=== PATIENT | male | born 1960 | race Caucasian/White ===

== ENCOUNTER 2022-05-25 09:13 | Outpatient (REF) | payer OTHER, SELFPAY ==
--- NOTE | ~2022-05-25 | XR_ITS ---
EXAMINATION: XR CERVICAL SPINE CLINICAL INFORMATION: Cervicalgia COMPARISON: None TECHNIQUE: 6 views of the cervical spine, inclusive of flexion and extension views, were obtained. FINDINGS: The dens is intact. The lateral masses are normally positioned. Lung apices are clear. There is mid cervical facet arthropathy with loss of disc height, endplate sclerosis, and anterior osteophytosis greatest at C6-C7, seen to a lesser degree at C5-C6. There is right osseous neuroforaminal narrowing at C3-C4 and C4-C5. Possible mild left osseous neuroforaminal narrowing at C4-C5. There is mild reversal of the normal cervical lordosis with 3 mm retrolisthesis of C6 on C7. There is no change with flexion or extension. XR/XR cervical spine w flex/ext IMPRESSION: Mid cervical facet arthropathy, degenerative disc disease at C5-C6 and C6-C7, and osseous neuroforaminal narrowing as described above. 3 mm retrolisthesis of C6 on C7 is unchanged in flexion.
[2022-05-25 11:11] LABS: Erythrocyte Sedimentation Rate 6 MM/HR (0-15)
== END 2022-05-25 09:14 | disposition home or self-care (01) ==
LOC: HO.LAB 09:13
PROVIDERS: PCP Internal Medicine; Visit Provider Nurse Practitioner Family
DX: R51.9 Headache, unspecified (principal); M54.2 Cervicalgia
CPT/HCPCS: 36415; 72052; 85652

== ENCOUNTER → 2022-09-12 12:56 | Outpatient (REF) | payer OTHER, SELFPAY | LOC: HO.SL 12:56 | PROVIDERS: PCP Internal Medicine; Visit Provider Nurse Practitioner Family | DX: G47.19 Other hypersomnia (principal); R06.83 Snoring; R35.1 Nocturia | CPT/HCPCS: 95806 ==

== ENCOUNTER 2022-10-23 14:05 | Outpatient (REF) | payer OTHER, SELFPAY ==
--- NOTE | 2022-10-23 | EMG_ITS ---
Please see scanned EMG / Nerve Conduction Report. MTDD
== END 2022-10-23 14:06 | disposition home or self-care (01) ==
LOC: HO.NEURO 14:05
PROVIDERS: Visit Provider Nurse Practitioner Family
DX: R25.1 Tremor, unspecified (principal); M54.2 Cervicalgia
CPT/HCPCS: 95886; 95910

== ENCOUNTER → 2023-01-16 14:26 | Outpatient (BNVA) | payer OTHER, SELFPAY | PROVIDERS: PCP Internal Medicine; Visit Provider Nurse Practitioner Family | DX: F45.8 Other somatoform disorders (principal); R06.83 Snoring; M54.2 Cervicalgia; R25.1 Tremor, unspecified ==

== ENCOUNTER → 2023-04-17 10:32 | Outpatient (BNVA) | payer OTHER, SELFPAY | PROVIDERS: PCP Internal Medicine; Visit Provider Nurse Practitioner Family | DX: F45.8 Other somatoform disorders (principal); R35.1 Nocturia; R06.83 Snoring; M54.2 Cervicalgia; R25.1 Tremor, unspecified ==

== ENCOUNTER 2023-11-06 10:38 | Outpatient (AMB) | payer OTHER, SELFPAY ==
--- NOTE | 2023-11-06 10:50 | MHC.OFFVIS ---
Intake Vital Signs 11/06/23 10:51 Height 5 ft Weight 165 lb 6 oz BMI 32.3 BP 118/82 Blood Pressure Location Rt brachial Position Sitting Intake Visit Reasons: 6mo f/u Head pressure,headaches-Conf Intake Note: patient presents for 6 month follow up head pressure,headaches. Allergies acetaminophen [From Vicodin] Adverse Reaction (Mild, Verified 11/06/23 10:57) Migraine hydrocodone [From Vicodin] Adverse Reaction (Mild, Verified 11/06/23 10:57) Migraine Medication List - Last Reconciled 11/06/23 by Jennifer Montano, BESSIE ibuprofen 200 mg PO Q6H PRN lorazepam 1 - 2 mg PO BEDTIME PRN HPI HPI Comments History of Present Illness Details 63-yr-old male presents for f/u visit. Pt denies any significant interval medical changes. He reports that he does have a daily headache, but somed ays are worse than others. He is not having the burning pain. The headache is now more like a pressure, mostly in the left spiritism, but also pressure/fullness in the forhead and eyes (supratrochlear and supraorbital), and can move into bilateral L > R cheek or chin nerve sensitivity but can wash it away w/ light touch. The headache can be triggered by wearing a tighter cap, laying or sitting with head back. He is not having as much neck pain in the last 2 months- now doing more cervical ROM and swimming at the [employer] and [employer]. He has annual f/u w/ Dr Cortez coming up. Doing sit-ups and walking on treadmill (flat at approx 3.6mph) can trigger the headache. However the swimming and bicep curls do not trigger the head pressure. Sometimes talking can trigger a headache. Still has bilateral L > R annoying ringing tinnitus. Now using Lorazepam 0.5mg most nights. Not using the cyclobenzaprine anymore. He has retired. No vision changes, no pain on chewing. [facility] Medical History Nocturia Surgical History H/O neck surgery History of hernia surgery History of back surgery Family History Father Arthritis Mother Type 2 diabetes mellitus Social History Alcohol intake: current Alcohol intake frequency: 0-2 drinks per day Patient Tobacco Use Status: Never used Tobacco Review of Systems Const All systems reviewed & are unremarkable except as noted in HPI and below Physical Exam Vital Signs: Last Vital Signs BP 118/82 11/06/23 10:51 BMI result Body Mass Index 32.3 Const General: cooperative and no acute distress Orientation/consciousness: patient oriented x3 HEENT Head: Yes normocephalic Resp Effort & Inspection: normal respiratory effort and able to speak in complete sentences Neuro General: patient oriented x3, gait normal and CN's II-XI intact bilaterally Cognition (Neuro): normal cognition Motor exam (neuro): 5/5 motor strength present throughout Psych Appearance: grossly normal Mental Status: mental status grossly normal Speech and movement: Normal speech and movement present Affect: normal affect Attitude: cooperative Thought process: Normal thought process present Thought content: Normal thought content present Insight: Good insight present (Psych) Judgement: Good judgement present (Psych) Results Reviewed Results Reviewed: Brain MRI w/wo 12/27/21 at [facility]: IMPRESSION: 1. Normal appearance to the IACs, inner ear structures and CP angle cisterns, with a normal appearance to the cranial nerve VII and VIII complexes bilaterally. No mass lesions or abnormal enhancement. 2. Small nonenhancing focus of white matter T2 hyperintensity, which is slightly T1 hypointense in the deep right centrum semiovale white matter, which is a nonspecific finding. Minimal patchy nonenhancing T2 hyperintensity in the right parietal white matter which may reflect minimal chronic ischemic microangiopathy. Assessment & Plan Assessment & Plan (1) Facial paresthesia: Code(s): R20.2 - Paresthesia of skin (2) Headache: Comment: atypical headache Code(s): R51.9 - Headache, unspecified (3) Exertional headache: Code(s): G44.84 - Primary exertional headache Plan Previous barin MRI- NL Previous ESR- NL Pt continues to have atypical headache w/ facial paresthesias and external triggers- thus pt advised to undergo Brain MRA to assess for secondary vascular etiology. For now continue paced exercise. Continue Lorazepam o.5-1mg qhs prn. f/u upon review of above and in-clinic in 6 months or sooner prn. Orders: Orders MR angio head wo con Today G44.84 - Primary exertional headache, R20.2 - Paresthesia of skin, R51.9 - Headache, unspecified Coding Level of Care Code Est Pt Level 4 (52183) Diagnoses Facial paresthesia R20.2 Headache R51.9 Exertional headache G44.84
[2023-11-06 10:51] VITALS: BP 118/82; BMI 32.3
== END 2023-11-06 12:10 | disposition home or self-care (01) ==
PROVIDERS: Visit Provider Nurse Practitioner Family
DX: R20.2 Paresthesia of skin (principal); G44.84 Primary exertional headache
CPT/HCPCS: 99214

== ENCOUNTER → 2023-11-06 10:38 | Outpatient (BNVA) | payer OTHER, SELFPAY | PROVIDERS: Visit Provider Nurse Practitioner Family | DX: F45.8 Other somatoform disorders (principal); R35.1 Nocturia; R06.83 Snoring; M54.2 Cervicalgia; R25.1 Tremor, unspecified ==

== ENCOUNTER 2024-05-13 10:53 | Outpatient (AMB) | payer OTHER, SELFPAY ==
--- NOTE | 2024-05-13 11:02 | A.OFFVIS_ITS ---
Vital Signs 05/13/24 11:03 Height 5 ft Weight 160 lb BMI 31.2 BP 140/98 H Blood Pressure Location Rt brachial Position Sitting Pulse 77 Pulse Source Pulse Oximeter Pulse Oximetry (%) 98 Oxygen Delivery Method Room Air Intake Visit Reasons: 6 mnts f/u appt-LVM Intake Note: Patient presents for 6 follow month.. patient still has headaches not as much but still gets them, patient sleeping better. Allergies acetaminophen [From Vicodin] Adverse Reaction (Mild, Verified 05/13/24 11:07) Migraine hydrocodone [From Vicodin] Adverse Reaction (Mild, Verified 05/13/24 11:07) Migraine Medication List - Last Reconciled 05/13/24 by BESSIE Ferrara cyclobenzaprine 10 mg PO BEDTIME PRN 30 days ibuprofen 200 mg PO Q6H PRN HPI Comments Details: 64-yr-old male presents for f/u visit. Pt denies any significant interval medical changes. Brain MRA- normal. He states that his glasses are not as bothersome- they are do not feel that they are pressing as much as they used to. He is not feeling the bilateral head nerve sensation as much- it is much bottom turning lathe tender and less frequent. He does not that he will feel the headache when he sleeps on his back. He can still have some neck pain. He still has sky tinnitus- sounds like tiny bells, sometimes he does not notice it as much. Had f/u w/ Dr Odom- was told work-up was normal. He has retired. He is sleeping better since he retired. He notes that he when he does not sleep well, he feels more hyper- like he cannot settle done. He feels the muscle relaxer can help him to relax. He is exercising regularly. Strength training. Does warm-ups/stretches. Walks a lot. Has been hiking. He has added a weekly yoga class before he exercises. He is trying to do some mediation. [facility] Medical History Nocturia Surgical History H/O neck surgery History of hernia surgery History of back surgery Family History Father Arthritis Mother Type 2 diabetes mellitus Social History Alcohol intake: current Alcohol intake frequency: 0-2 drinks per day Patient Tobacco Use Status: Never used Tobacco Physical Exam Vital Signs: Last Vital Signs Pulse 77 05/13/24 11:03 BP 140/98 H 05/13/24 11:03 Pulse Ox 98 05/13/24 11:03 Oxygen Delivery Method Room Air 05/13/24 11:03 BMI result Body Mass Index 31.2 Const General: cooperative and no acute distress Orientation/consciousness: patient oriented x3 Resp Effort & Inspection: normal respiratory effort and able to speak in complete sentences Neuro General: patient oriented x3 Cranial nerves: Yes CN's II-XII intact bilaterally Cognition (Neuro): normal cognition Psych Appearance: grossly normal Mental Status: mental status grossly normal Speech and movement: Normal speech and movement present Affect: normal affect Attitude: cooperative Assessment & Plan Assessment & Plan (1) Headache: Comment: atypical headache Code(s): R51.9 - Headache, unspecified Category: Medical (2) Cervicalgia: Code(s): M54.2 - Cervicalgia Category: Medical Plan Reviewed Brain MRA- normal. Continue regular physical activity. May use Cyclobenzaprine 10mg qhs prn. Pt has stopped Lorazepam o.5-1mg qhs prn. f/u in 12 months or sooner prn. Medications: Refilled cyclobenzaprine 10 mg PO BEDTIME 30 days PRN 30 tabs 3RF muscle spasm Coding Level of Care Code Est Pt Level 4 (32935) Diagnoses Headache R51.9 Cervicalgia M54.2
[2024-05-13 11:03] VITALS: BP 140/98; PULSE 77; O2SAT 98; BMI 31.2
== END 2024-05-13 11:58 | disposition home or self-care (01) ==
PROVIDERS: PCP Internal Medicine; Visit Provider Nurse Practitioner Family
DX: R51.9 Headache, unspecified (principal); M54.2 Cervicalgia
CPT/HCPCS: 99214

== ENCOUNTER → 2024-05-13 10:53 | Outpatient (BNVA) | payer OTHER, SELFPAY | PROVIDERS: PCP Internal Medicine; Visit Provider Nurse Practitioner Family ==

== ENCOUNTER 2024-11-10 09:10 | Outpatient (AMB) | payer OTHER, SELFPAY ==
--- NOTE | 2024-11-10 09:19 | A.OFFVIS_ITS ---
Vital Signs 11/10/24 09:20 Height 5 ft Weight 167 lb 15.876 oz BMI 32.8 BP 132/80 Blood Pressure Location Lt brachial Position Sitting Pulse 73 Pulse Source Pulse Oximeter Pulse Oximetry (%) 98 Oxygen Delivery Method Room Air Intake Visit Reasons: RA. Needs Cortisone Injections/CM Intake Note: Patient presents for cortisone injection in left hip today. Allergies acetaminophen [From Vicodin] Adverse Reaction (Mild, Verified 05/13/24 11:07) Migraine hydrocodone [From Vicodin] Adverse Reaction (Mild, Verified 05/13/24 11:07) Migraine HPI HPI RA. Needs Cortisone Injections/CM: Details: Since being in [facility] he has had pain in his left lateral hip when he sleeps. He also has noted vibration on the lateral side of his hip that comes and goes radiates to his knee. When he was in [facility] he took cyclobenzaprine 5 mg q.h.s. with relief. [facility] Medical History Nocturia Surgical History H/O neck surgery History of hernia surgery History of back surgery Family History Father Arthritis Mother Type 2 diabetes mellitus Social History Alcohol intake: current Alcohol intake frequency: 0-2 drinks per day Patient Tobacco Use Status: Never used Tobacco Review of Systems Const All systems reviewed & are unremarkable except as noted in HPI and below Physical Exam Vital Signs: Last Vital Signs Pulse 73 11/10/24 09:20 BP 132/80 11/10/24 09:20 Pulse Ox 98 11/10/24 09:20 Oxygen Delivery Method Room Air 11/10/24 09:20 BMI result Body Mass Index 32.8 Const Other: General: Comfortable Skin: No lesions seen MSK: Tender to palpate left trochanteric bursa. Good range of motion of hip. No tenderness along ITP band. Office Procedures AMB Joint Injection/Aspiration Joint Injection/Aspiration Details: Left trochanteric hip bursa Prep: site was prepped using aseptic technique Injected: 40 mg of, Kenalog, with 1 mL of and 1% plain lidocaine Procedure: The patient tolerated the procedure well Coding - Large joint Procedure code (CPT) selection complete Office Meds Kenalog 40 mg/mL suspension for injection Performing Provider: Rangel Sena MD Performing Location[place] [facility] [place] [facility] Administered by: Rangel Sena MD on 11/10/24 09:53 Dose Route Admin Location Dispensed Lot Number Expiration Date [facility] [employer] 40 mg intrabursal 1 mL AP [id number] [employer] lidocaine (PF) 10 mg/mL (1 %) injection solution Performing Provider: Rangel Sena MD Performing Location[place] [facility] [place] [facility] Administered by: Rangel Sena MD on 11/10/24 09:53 Dose Route Admin Location Dispensed Lot Number Expiration Date [facility] [employer] 10 mg Infiltration 2 mL [id number] [facility] Assessment & Plan Assessment & Plan (1) Trochanteric bursitis, left hip: Comment: Recurrent. Code(s): M70.62 - Trochanteric bursitis, left hip Category: Medical Plan: He received left trochanteric bursa cortisone injection this visit Return to clinic p.r.n. (2) Muscle spasm: Comment: Suspected in left leg. He had relief with cyclobenzaprine PRN. Code(s): M62.838 - Other muscle spasm Category: Medical Plan: He will call office with prescription. We will then send 30 day supply of cyclobenzaprine for him to use sparingly. Return to clinic p.r.n. Orders: Orders AMB Joint Injection/Aspiration Today M70.62 - Trochanteric bursitis, left hip Medications: New Kenalog (triamcinolone acetonide) 40 mg intrabursal ONCE 1 mL 0RF NS M70.62 - Trochanteric bursitis, left hip lidocaine (PF) 10 mg Infiltration ONCE 1 mL 0RF M70.62 - Trochanteric bursitis, left hip Coding Level of Care Code Est Pt Level 3 (93650) Complex EM visit Add On G2211 Diagnoses Trochanteric bursitis, left hip M70.62 Muscle spasm M62.838 CPT Codes Coding - Large joint: 01628 - Large joint ([id number])
[2024-11-10 09:20] VITALS: BP 132/80; PULSE 73; O2SAT 98; BMI 32.8
== END 2024-11-10 09:51 | disposition home or self-care (01) ==
PROVIDERS: PCP Internal Medicine; Visit Provider Internal Medicine Rheumatology
DX: M70.62 Trochanteric bursitis, left hip (principal); M62.838 Other muscle spasm
CPT/HCPCS: 20610; 99213; G2211

== ENCOUNTER → 2024-11-10 09:10 | Outpatient (BNVA) | payer OTHER, SELFPAY | PROVIDERS: PCP Internal Medicine; Visit Provider Internal Medicine Rheumatology | DX: M70.62 Trochanteric bursitis, left hip (principal); M62.838 Other muscle spasm | CPT/HCPCS: 20610; J2003; J3300 ==

== ENCOUNTER 2025-05-13 09:56 | Outpatient (AMB) | payer OTHER, SELFPAY ==
[2025-05-13 10:01] VITALS: BP 142/80; PULSE 78; O2SAT 98; BMI 32.4
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
--- OUTSIDE RECORDS SUMMARY | 2025-05-13 10:39 | XMS_ITS ---
Author Name [facility] Organization Unknown Problems Problem Status Onset Date Problem Type Date of Resoluti on Source Tear of right rotator cuff, unspecified tear extent, unspecified whether traumatic active EncounterDiagnosisAct H HCCT Encounters Encounter Type Encounter Reason Primary Diagnosis Location Date Ambulatory [place] [facility] 11/16/2024 Care Team Organization Name Specialty Phone Email Start Date End [place] [facility] PCP Resp Ther 11/20/2024 02/16/2025 [facility] NO PCP Primary Care 11/16/2024 [facility] 11/10/2024
== END 2025-05-13 10:44 | disposition home or self-care (01) ==
LOC: HO.HSMS 09:56
PROVIDERS: PCP Internal Medicine; Visit Provider Nurse Practitioner Family
DX: G44.89 Other headache syndrome (principal); M54.2 Cervicalgia
CPT/HCPCS: 99214

== ENCOUNTER → 2025-05-13 09:56 | Outpatient (BNVA) | payer OTHER, SELFPAY | PROVIDERS: PCP Internal Medicine; Visit Provider Nurse Practitioner Family ==